=== PATIENT | male | born 1955 | race Two or more races ===

== ENCOUNTER 2024-06-09 20:45 | Emergency (ER) | payer MEDICARE, SELFPAY ==
[2024-06-09 20:48] VITALS: BP 146/94
[2024-06-09 21:53] LABS: % Basophils 0.4 % (0-2); % Eosinophils 2.1 % (0-6); % Immature Granulocytes 0.6 % (0-0.5); % Lymphocytes 26.7 % (20.5-51.1); % Monocytes 6.8 % (1.7-9.3); % Neutrophils 63.4 % (42.2-75.2); Absolute Eosinophils 0.2 10^3/uL (0-0.7); Absolute Lymphocytes 1.9 10^3/uL (1.2-3.4); Absolute Monocytes 0.5 10^3/uL (0.1-0.6); Absolute Neutrophils 4.5 10^3/uL (1.4-6.5); Hematocrit 42.7 % (39.0-52.0); Hemoglobin 13.9 g/dL (13.0-18.0); Mean Corp Hgb Conc. 32.6 g/dL (33.0-37.0); Mean Corpuscular Hgb 28.5 pg (27.0-31.0); Mean Corpuscular Volume 87.7 fL (80.0-94.0); Mean Platelet Volume 9.7 fL (7.4-10.4); Nucleated Red Blood Cells % 0 % (-); Platelet Count 239 10^3/uL (130-400); Red Blood Cell Count 4.87 10^6/uL (4.70-6.10); Red Cell Dist. Width 12.8 % (11.5-14.5); White Blood Cell Count 7.1 10^3/uL (4.8-10.8)
[2024-06-09 22:09] LABS: ALT (SGPT) 28 U/L (0-50); AST (SGOT) 27 U/L (17-59); Albumin 4.2 g/dl (3.5-5.0); Alkaline Phosphatase 79 U/L (38-126); Blood Urea Nitrogen 27 mg/dl (9-20); Carbon Dioxide 28 mmol/L (22-30); Chloride 102 mmol/L (98-107); Glucose 132 mg/dl (70-99); Potassium 4.7 mmol/L (3.5-5.1); Sodium 136 mmol/L (135-145); Total Bilirubin 0.3 mg/dl (0.2-1.3); eGFR 59.47
[2024-06-09 22:14] LABS: Erythrocyte Sed Rate 25 mm/hour (0-20)
[2024-06-09 23:22] LABS: C-Reactive Protein < 5.00 mg/L (0.0-10.00)
--- NOTE | 2024-06-09 23:50 | ED.GENMED ---
History of Present Illness
General
Chief Complaint: Eye Problems
Source: patient
Exam Limitations: none
Time Seen by Provider: 06/09/24 23:48
Nursing documentation reviewed up to this point in time: agreed with
History of Present Illness
History of Present Illness:
Pleasant 69-year-old male who presents with weeks of 'electric shocks to his right eye '. He states that they are unprovoked and it come on at random times. He did have some numbness to the right side of his face and left arm. Patient states that
he has been having this numbness but tonight it seemed more widespread. Denies headache. Denies other numbness or tingling. Reports no fever or chills.
Past History
Past History
ED Past Medical History: CAD, HTN, Hypercholesterolemia and Other (BPH, erectile dysfunction)
ED Past Surgical History: Cardiac
Social History
Tobacco: Non-smoker
Alcohol: None
Drug: None
Phy Exam
General Physical Exam
General Presentation: well appearing and no apparent distress
General age: appears stated age
General Skin: warm and dry
General Habitus: normal and obese
General Mental: alert and usual mental status
General Hydration: appears well hydrated
Eye Exam
Eye Exam: PERRL and EOMI
Eye Exam General: PERRL: bilateral and EOM intact: bilateral
Pupil Exam: Bilateral: round and reactive
Type of Exam: simple and fluorescein
Neurological Exam
Neurological Exam: alert, oriented x3, no motor deficits and speech normal
NIH Stroke Score
Level of Consciousness: 0 - Alert
LOC questions: 0-Answers both correctly
LOC Commands: 0-Performs both correctly
Best Gaze: 0-Normal
Visual Edwards: 0=Normal, no visual loss
Facial palsy: 0=Normal, symmetrical
Motor - Right Arm: 0=No drift 10 seconds
Motor - Left Arm: 0=No drift 10 seconds
Motor - Right Le-No drift 5 seconds
Motor - Left Le-No drift 5 seconds
Limb Ataxia: 0-Absent
Sensation: 0-Normal
Best Language: 0-No aphasia
Dysarthria: 0-Normal
Extinction and Inattention: 0-No abnormality
Total Score:: 0
Musculoskeletal Exam
Musculoskeletal Exam: full ROM
Skin Exam
Skin Exam: normal color and warm/dry
Psychiatric Exam
Psychiatric Exam: normal mood/affect
Course
Orders/Labs/Results
Orders:
Orders
06/09/24 20:54
CT Head W/o Iv Contrast Urgent
Comment:
Reason For Exam: R eye pain
06/09/24 21:01
C-Reactive Protein Urgent
Complete Blood Count/With Diff Urgent
Comprehensive Metabolic Panel Urgent
Erythrocyte Sed Rate Urgent
06/09/24 21:04
Add On- LAB Urgent
Tests Added?: ESR/CRP
Abnormal Lab Results
06/09/24
21:01
MCHC 32.6 L g/dL
(33.0-37.0)
Immature Gran % 0.6 H %
(0-0.5)
ESR 25 H mm/hour
(0-20)
BUN 27 H mg/dl
(9-20)
Glucose 132 H mg/dl
(70-99)
06/09/24 21:01
06/09/24 21:01
Vital Signs
Initial and Last Documented VS:
Initial Vital Signs
Temp Pulse Resp BP Pulse Ox
97.9 F 89 16 146/94 100
06/09/24 20:48 06/09/24 20:48 06/09/24 20:48 06/09/24 20:48 06/09/24 20:48
Last Documented Vital Signs
Temp Pulse Resp BP Pulse Ox
97.8 F 80 18 124/79 98
06/10/24 00:11 06/10/24 00:11 06/10/24 00:11 06/10/24 00:11 06/10/24 00:11
*Critical Care Note
Total Time (30-74mins, 75-104mins- exclusive of procedures): Not Applicable
Update Note
Update Note:
CT head:
no acute intracranial abnormality noted.
Mild nonspecific leukoaraiosis. Such findings are nonspecific. Possibly related to demyelination, gliosis, chronic ischemic change. Further evaluation and characterization may be considered with follow-up nonemergent MRI.
Given patient's findings, I offered to have patient brought into the hospital for continued testing including a possible MRI and neurology consult. At this point patient refused stating that he has to go to work at the [employer] tomorrow and
cannot miss a day of work. I did give him a prescription for an outpatient MRI which I encouraged him to call immediately for an appointment. We did discuss return to ER instructions at length. Patient verbalized good understanding of these
instructions. Patient being discharged in much improved condition.
ED Attending Note
-
Portions of this chart may have been created with voice recognition software.� Occasional wrong word or��sound alike� substitutions may have occurred due to the inherent limitations of voice recognition software.
Discharge Plan
Departure
Patient Disposition: Home (Routine Discharge)
Date of Disposition: 06/10/24
Time of Disposition: 00:10
Patient with high blood pressure during this ER visit?: Yes
Discharge Problem:
Acute eye pain
Instructions: Optic neuritis, BLOOD PRESSURE
Prescriptions:
No Action
atorvastatin [Lipitor] 40 MG tablet
40 mg PO HS
clopidogrel [Plavix] 75 MG tablet
75 mg PO DAILY
acetaminophen 325 MG tablet
650 mg PO Q4HPRN PRN (Reason: HEADACHE OR FEVER > 101F) 0RF
metoprolol succinate 12.5 MG tablet extended release 24 hr
12.5 mg PO HS
doxazosin 2 MG tablet
2 mg PO DAILY
aspirin 81 MG tablet,delayed release (DR/EC)
81 mg PO DAILY
finasteride 5 MG tablet
5 mg PO DAILY
oxycodone 5 MG tablet
5 mg PO Q4HPRN PRN (Reason: moderate pain)
Referrals:
Vicki Mckeon MD [Family Provider] -
Activity Restrictions/Additional Instructions:
I have given you a prescription for an outpatient MRI. Please call as soon as possible to schedule an appointment. Results will go to your family doctor.
There are instructions included for optic neuritis. While I do not feel that this is the exact diagnosis, it is a possibility. Instructions are for informational purposes only.
Please call your doctor's office as soon as possible to make an appointment for the next 2-3 days.
We found no dangerous signs or symptoms suggesting conditions that would keep your child in the hospital. If your child's condition changes, this may be a sign of something new or your child's condition worsening. Please return immediately for any
new or different concerning symptoms. Particularly concerning symptoms would include:
We found no dangerous signs or symptoms suggesting conditions that would keep you in the hospital. If your condition changes, this may be a sign of something new or your condition worsening. Please return immediately for any new or different
concerning symptoms. Particularly concerning symptoms would include: Worsening pain, swelling, redness, warmth, streaking up the leg, fevers, swollen glands, numbness, weakness, tingling, lightheadedness, passing out.
It was a pleasure meeting you and taking part in your care. We hope for your continued healing and wellness.
Please read discharge instructions in their entirety. However, they are for general education and may not describe your exact diagnosis at discharge. Information on your ER visit and medical conditions were discussed with you along with appropriate
follow up information...
If indicated, please take your medications as instructed and indicated on discharge paperwork.
Please schedule a follow up appointment as directed. Call to schedule an appointment
Please return to the emergency department with ANY change in, persisting, or worsening of symptoms. If any of your symptoms do not improve, or persist, or become more severe within 6-12 hours, please return to the emergency department for further
care.
Please return to the emergency department if you develop a headache, neck pain/stiffness, fever greater than 100.4F, chest pain, shortness of breath, persistent nausea, vomiting, slurred speech, difficulty walking, numbness/tingling, weakness, signs
of infection or any other symptoms that are worrisome to you.
If you have any questions or concerns please do not hesitate to call the Hospital at or E-mail me directly at [email or web address]
Interventions
Interventions:
*Risk Screen - Suicide Last Done: 06/09/24 20:48
*General Assessment Last Done: 06/09/24 20:48
*Neglect/Abuse Screening Last Done: 06/09/24 20:48
*Nursing Disposition Last Done: 06/10/24 00:29
Discharge Date and Time
Discharge Date/Time: 06/10/24 00:30
Print Language: [place]
[2024-06-10 00:11] VITALS: BP 124/79
== END 2024-06-10 00:30 | disposition home or self-care (01) ==
LOC: EMR 20:45
PROVIDERS: Emergency Medicine; EMERGENCY PHYSICIAN Student in an Organized Health Care Education/Training Program; FAMILY PHYSICIAN Family Medicine
DX: H57.11 Ocular pain, right eye (principal); R20.0 Anesthesia of skin; I25.10 Atherosclerotic heart disease of native coronary artery without angina pectoris; I10 Essential (primary) hypertension; E78.00 Pure hypercholesterolemia, unspecified; N40.0 Benign prostatic hyperplasia without lower urinary tract symptoms; I25.2 Old myocardial infarction; Z95.5 Presence of coronary angioplasty implant and graft; Z87.891 Personal history of nicotine dependence
CPT/HCPCS: 99284; 70450; 80053; 85025; 85652; 86140

== ENCOUNTER → 2024-06-17 19:31 | Outpatient (REF) | payer MEDICARE, OTHER, SELFPAY | LOC: MRI 19:31 | PROVIDERS: ATTENDING PHYSICIAN Family Medicine | DX: H57.11 Ocular pain, right eye (principal) | CPT/HCPCS: 70553; A9575 ==